=== PATIENT | male | born 1960 | race Caucasian/White ===

== ENCOUNTER 2017-07-07 08:15 | Emergency (ER) | payer BC ==
[~2017-07-07] VITALS: Ht 188 cm; Wt 68.0 kg
[~2017-07-07 08:15] MED LIST: ASPI81 PO
[2017-07-07 08:22] VITALS: BP 131/66; PULSE 72; RESP 20; TEMP 96.2; O2SAT 100
[2017-07-07 08:32] VITALS: BP 135/74; PULSE 72; RESP 18; O2SAT 100
--- NOTE | 2017-07-07 08:55 | PD ---
HPI Chief Complaint: Dizziness Time Seen by Provider: 08:34 Travel History International Travel<30 days: No Contact w/Intl Traveler<30days: No Traveled to known affect area: No History of Present Illness HPI This patient woke up this morning and had some vertigo sensations. When he tipped his head forward off the pillow he experienced a bouncing sensation. He has had vertigo before. He has been seen here 3 times for it in the past. He was worried about having a stroke because of the vertigo symptoms. He says that he has a history of right-sided carotid dissection with some stenosis. He had this imaged by [facility] 2 years ago. He takes a half aspirin daily as therapy for this. He denies muscle weakness or sensory loss or speech slurring or headache. Duration 1 hour. No alleviating factors. At this point his vertigo has resolved. Symptoms were exacerbated by movement when he woke up. No history of stroke. 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)) Chemotherapy: No Cerebrovascular Accident: No Diabetes: No Diminished Hearing: No Headaches: Yes Respiratory: No Past Surgical History Appendectomy: Yes Tonsillectomy: Yes Other Surgery: No Social History Alcohol Use: No Tobacco Use: No Substance Use: No Allergies-Medications (Allergen,Severity, Reaction): Coded Allergies: No Known Allergies (Verified , 11/14/15) Reported Meds & Prescriptions Reported Meds & Active Scripts Active Reported Aspirin 81 Mg Tab 162 Mg PO DAILY Review of Systems General / Constitutional: No: Fever Eyes: No: Visual changes HENT: Positive: Vertigo, No: Headaches Cardiovascular: No: Chest Pain or Discomfort Respiratory: No: Shortness of Breath Gastrointestinal: No: Abdominal Pain Genitourinary: No: Dysuria Musculoskeletal: No: Pain Skin: No Rash Neurologic: No: Weakness Psychiatric: No: Depression Endocrine: No: Polydipsia Hematologic/Lymphatic: No: Easy Bruising Physical Exam Narrative GENERAL: Well-nourished, well-developed patient in no apparent distress. SKIN: Focused skin assessment reveals no rash and nodules. Skin is Warm and dry. HEAD: Atraumatic. Normocephalic. EYES: Pupils equal and round. No scleral icterus. No injection or drainage. ENT: No nasal bleeding or discharge. Mucous membranes pink and moist. NECK: Trachea midline. No JVD. CARDIOVASCULAR: Regular rate and rhythm. No murmur appreciated. RESPIRATORY: No accessory muscle use. Clear to auscultation. Breath sounds equal bilaterally. GASTROINTESTINAL: Abdomen soft, non-tender, nondistended. Hepatic and splenic margins not palpable. MUSCULOSKELETAL: No obvious deformities. No clubbing. No cyanosis. No edema. NEUROLOGICAL: Awake and alert. No obvious cranial nerve deficits. Motor grossly within normal limits. Normal speech. PSYCHIATRIC: Appropriate mood and affect; insight and judgment normal. Data Data Last Documented VS Vital Signs Date Time Temp Pulse Resp B/P (MAP) Pulse Ox O2 Delivery O2 Flow Rate FiO2 07/07/17 08:32 73 18 100 Room Air 07/07/17 08:32 135/74 (94) 07/07/17 08:22 96.2 [facility] Medical Decision Making Medical Screen Exam Complete: Yes Emergency Medical Condition: Yes Medical Record Reviewed: Yes Differential Diagnosis Positional vertigo, labyrinthitis, carotid dissection Narrative Course I have reviewed the patient's electronic medical record. Patient and normal brain MRI 2008. He has been here for vertigo 3 times prior to today Patient has no neurologic deficit on exam. He is asymptomatic now. I placed a call to his neurologist Dr. Lau to discuss. We are told he is unavailable till noon. On recheck the patient he is doing well. He is up and ambulatory. He feels fine. His vertigo has resolved I do not have any clinical suspicion of acute CVA based on his positional vertigo symptoms that were brief and have resolved I do not think we need emergent imaging He should follow-up with his neurologist. We discussed signs and symptoms of stroke including motor weakness and sensory loss and speech slurring. He will return if he has any worsening I offered him some meclizine but he declines Diagnosis Primary Impression: Positional vertigo Additional Instructions: Follow-up with your neurologist Med/Other Pt SpecificInfo: Other Disposition: 01 DISCHARGE HOME Condition: Stable Rogerio Herrmann MD July 07, 2017 08:55
== END 2017-07-07 10:21 | disposition home or self-care (01) ==
LOC: NEPC 08:15
DX: R42 Dizziness and giddiness (principal)
CPT/HCPCS: 99281